=== PATIENT | female | born 1955 | race Caucasian/White ===

== ENCOUNTER 2024-02-10 13:24 | Outpatient (AMB) | payer OTHER, MEDICARE, SELFPAY ==
[2024-02-10 13:27] VITALS: BP 124/74; PULSE 67; O2SAT 96; BMI 32.8
--- NOTE | 2024-02-10 13:27 | HO.NEPHOV ---
Vital Signs 02/10/24 13:27 Height 5 ft 6 in Weight 203 lb 4 oz BMI 32.8 BP 124/74 Blood Pressure Location Lt brachial Position Sitting Pulse 67 Pulse Source Pulse Oximeter Pulse Oximetry (%) 96 Oxygen Delivery Method Room Air Intake Visit Reasons: Continuing care-HTN Special Service Representative Required: No Allergies lisinopril Allergy (Verified 02/10/24 13:30) Unknown Pzynmrb-KGQ-YzR Reductase Inhibitor Allergy (Verified 02/10/24 13:30) Unknown HPI Comments Details: 68-year-old man with a history of longstanding hypertension. She is here for annual follow-up. 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 No specific issues at this time. History of obstructive sleep apnea. She is chronic cough which is most likely related to underlying GERD. [facility] Medical History (Updated 02/09/24 @ 10:33 by Jerica Najera MA) Urinary tract infection Sleep apnea Nephrolithiasis HTN (hypertension) Hyperlipidemia GERD (gastroesophageal reflux disease) Atrial fibrillation Surgical History (Updated 02/10/24 @ 13:33 by Jerica Najera MA) S/P bunionectomy Family History (Updated 02/09/24 @ 10:36 by Jerica Najera MA) Mother Skin cancer Dementia Father Hypertension Heart disease Autoimmune disease Dementia Brother Dementia Esophageal cancer Social History (Updated 02/10/24 @ 13:33 by Jerica Najera MA) Alcohol intake: never Patient Tobacco Use Status: Never used Tobacco Physical Exam Vital Signs: Last Vital Signs Pulse 67 02/10/24 13:27 BP 124/74 02/10/24 13:27 Pulse Ox 96 02/10/24 13:27 Oxygen Delivery Method Room Air 02/10/24 13:27 BMI result Body Mass Index 32.8 Const General: comfortable; No acute distress Orientation/consciousness: patient oriented x3 Eyes General: appearance normal, both eyes and all related structures Visual Palacios: normal visual palacios by confrontation Neck Neck: Yes supple and Yes no JVD Resp Effort & Inspection: normal respiratory effort and respiratory effort not decreased Auscultation: rhonchi Cardio Palpation: no palpable S3 and no palpable S4 Heart sounds: no rubs GI Inspection: Yes normal to inspection Palpation (GI): Soft to palpation Percussion: Yes normal to percussion Auscultation: normal bowel sounds General: Yes no CVA tenderness Back/Spine/Pelvis Back: no CVA tenderness Skin General skin exam: no petechiae and no purpura Neuro General: patient oriented x3 and no focal motor deficits Extrem General: No clubbing and No edema Results Reviewed Results Reviewed: Creatinine 1.0 Nephrology Results: No Data to Display Assessment & Plan Assessment & Plan (1) HTN (hypertension): Code(s): I10 - Essential (primary) hypertension Category: Medical Plan 68-year-old man with a history of longstanding hypertension in the presence sleep apnea. Blood pressure well controlled at this time. Maintain blood pressure less than 130/80 Encouraged to stand low-sodium diet. Obstructive sleep apnea and obesity could be contributing to the hypertension. Encouraged her to continue using CPAP. Weight loss will also benefit. I have not made any changes to her medications today Orders: Orders Complete Blood Count Auto Diff 1 Year I10 - Essential (primary) hypertension Comprehensive Met. Panel 1 Year I10 - Essential (primary) hypertension Coding Level of Care Code Est Pt Level 3 (78818) Diagnoses HTN (hypertension) I10
== END 2024-02-10 13:46 | disposition home or self-care (01) ==
PROVIDERS: PCP Physician Assistant; Visit Provider Internal Medicine Hypertension Specialist
DX: I10 Essential (primary) hypertension (principal)
CPT/HCPCS: 99213

== ENCOUNTER → 2024-02-10 13:24 | Outpatient (BNVA) | payer OTHER, MEDICARE, SELFPAY | PROVIDERS: PCP Physician Assistant; Visit Provider Internal Medicine Hypertension Specialist ==

== ENCOUNTER 2025-01-25 13:22 | Outpatient (AMB) | payer OTHER, MEDICARE, SELFPAY ==
--- OUTSIDE RECORDS SUMMARY | 2025-01-22 23:59 | XMS_ITS | Continuity of Care Document ---
Author Organization [facility] ter Address [address] [place] [id number]- Care Team Providers Care Tapping Machine Operator Name Role Phone Enzo Beatty Primary Care Physician Encounter 01/21/25 - 01/22/[address] [address]- Attending Physician: Not on Staff, Attending MD Referring Physician: Not on Staff, Referring MD Encounter Type: [facility]RI Allergies, Adverse Reactions, Alerts Substance Criticality Severity Reaction Reaction Severity Status lisinopril Active statins Active Immunizations Given and Recorded Vaccine Date Status Refusal Reason influenza virus vaccine, inactivated 03/07/21 Umair rded influenza virus vaccine, inactivated 1 04/20/18 Re corded SARS-CoV-2 (COVID-19) mRNA BNT-162b2 vac 08/24/20 Recorded SARS-CoV-2 (COVID-19) mRNA BNT-162b2 vac 08/01/20 Recorded zoster vaccine, inactivated 06/19/20 Recorded pneumococcal 13-valent vaccine 03/28/20 Recorded Zoster Vaccine Live 02/03/20 Recorded pneumococcal 23-valent vaccine 03/31/17 Given tetanus/diphtheria/pertussis, acel(Tdap) 01/29/17 Recorded tetanus-diphtheria toxoids (Td) 01/13/17 Recorded 1Result Comment: [04/22/2018] done by [facility] Medications Acidophilus Probiotic Blend By Mouth, Daily, 0 Refills, Maintenance, 06/30/19 2:09:00 PM EST Start Date: 06/30/19 Status: Ordered Repeat number: 1 Budesonide add to saline rinse solution, Refills 0, Maintenance, 09/24/23 10:18:00 AM EDT Start Date: 09/24/23 Status: Ordered Repeat number: 1 clobetasol 0.05% topical cream 1 application, Topically, prn, # 15 Gm, 0 Refills, Maintenance, 06/30/19 2:09:00 PM EST, Cream Start Date: 06/30/19 Status: Ordered Quantity: 15.0 Unit: g Repeat number: 1 CoQ10 300 mg oral capsule 1 capsule = 300 mg, By Mouth, Daily, # 100 capsule, 0 Refills, Maintenance, 02/06/21 8:49:00 AM EDT,Capsule, Partial fill upon patient request if the prescription is for a schedule II opioid drug. Start Date: 02/06/21 Status: Ordered Quantity: 100.0 Unit: capsule Repeat number: 1 docusate sodium 100 mg oral tablet 1 tablet = 100 mg, By Mouth, 2 times a day, PRN for constipation, # 100 tablet, 0 Refills, Maintenance, 09/13/24 10:00:00 AM EDT, Tablet, Partial fill upon patient request if the prescription is for a schedule II opioid drug. Start Date: 09/13/24 Status: Ordered Quantity: 100.0 Unit: tablet Repeat number: 1 famotidine 20 mg oral tablet 20 mg, 1, tablet, By Mouth, Daily, Refills 0, Maintenance, 06/21/24 9:34:00 AM EST, Partial fill uponpatient request if the prescription is for a schedule II opioid drug. Start Date: 06/21/24 Status: Ordered Repeat number: 1 ferrous sulfate 325 mg oral tablet 1 tablet = 325 mg, By Mouth, Daily, # 90 tablet, 1 Refills, Maintenance, 09/23/24 10:12:00 PM EDT, Tablet, [facility]/pharmacy #[id number], Partial fill upon patient request if the prescription is for a schedule II opioid drug., 168, cm, 09/13/24 9:54:00 EDT, Height Start Date: 09/23/24 Status: Ordered Quantity: 90.0 Unit: tablet Repeat number: 2 flecainide 50 mg oral tablet 1, tablet, By Mouth, Every 12 hours, # 180 tablet, Refills 3, Maintenance, 10/28/24 10:51:00 AM EDT,Route to Pharmacy Electronically, [id number], 167, cm, 10/13/24 12:52:00 EDT, Height Start Date: 10/28/24 Stop Date: 01/26/25 Status: Ordered Quantity: 180.0 Unit: tablet Repeat number: 1 ibuprofen 200 mg oral capsule 2 capsule = 400 mg, By Mouth, Every 4 hours, PRN for fever, # 120 capsule, 0 Refills, Maintenance, 06/30/19 2:10:00 PM EST, Capsule Start Date: 06/30/19 Status: Ordered Quantity: 120.0 Unit: capsule Repeat number: 1 Metoprolol Tartrate 25 mg oral tablet 1 tablet, By Mouth, 2 times a day, # 180 tablet, 3 Refills, Maintenance, 12/26/24 11:41:00 AM EDT, [facility]/pharmacy #[id number], 167, cm, 12/19/24 13:03:00 EDT, Height Start Date: 12/26/24 Stop Date: 12/21/25 Status: Ordered Quantity: 180.0 Unit: tablet Repeat number: 4 Misc Rx Refills 0, Maintenance, vitamin C 250 mg gummie daily, 09/13/24 9:59:00 AM EDT, Supply Start Date: 09/13/24 Status: Ordered Repeat number: 1 Misc Rx Refills 0, Maintenance, D' mannose 1000 mg daily, 09/13/24 10:00:00 AM EDT, Supply Start Date: 09/13/24 Status: Ordered Repeat number: 1 Mucinex 600 mg oral tablet, extended release 1 tablet = 600 mg, By Mouth, Every 12 hours, prn, # 14 tablet, 0 Refills, Maintenance, 06/30/19 2:09:00 PM EST, ER Tablet Start Date: 06/30/19 Stop Date: 07/07/19 Status: Ordered Quantity: 14.0 Unit: tablet Repeat number: 1 Multivitamin 0 Refills, Maintenance, 12/19/24 1:07:00 PM EDT, Partial fill upon patient request if the prescription is for a schedule II opioid drug. Start Date: 12/19/24 Status: Ordered Repeat number: 1 Nexium 20 mg oral enteric coated capsule 1 capsule = 20 mg, By Mouth, Daily, 0 Refills, Maintenance, 06/06/21 2:38:00 PM EST, Partial fill upon patient request if the prescription is for a schedule II opioid drug. Start Date: 06/06/21 Status: Ordered Repeat number: 1 nystatin-triamcinolone topical 413865 u/gm-0.1% ointment 1 application, Topically, 3 times a day, 0 Refills, Maintenance, 02/06/21 8:48:00 AM EDT, Partial fill upon patient request if the prescription is for a schedule II opioid drug. Start Date: 02/06/21 Stop Date: 02/11/21 Status: Ordered Repeat number: 1 pravastatin 10 mg oral tablet 1 tablet, By Mouth, Daily, # 90 tablet, 3 Refills, Maintenance, 04/25/24 6:51:00 AM EST, [id number], 168, cm, 03/30/24 9:38:00 EDT, Height Start Date: 04/25/24 Status: Ordered Quantity: 90.0 Unit: tablet Repeat number: 1 tacrolimus 0.1% topical ointment 1 application, Topically, 2 times a day, # 30 Gm, 0 Refills, Maintenance, 07/09/20 12:12:00 PM EST, Ointment, Partial fill upon patient request if the prescription is for a schedule II opioid drug. Start Date: 07/09/20 Status: Ordered Quantity: 30.0 Unit: g Repeat number: 1 Tylenol 8 Hour 650 mg oral tablet, extended release 2 tablet = 1,300 mg, By Mouth, Every 8 hours, PRN as needed for fever, # 24 tablet, 0 Refills, Maintenance, 06/30/19 2:09:00 PM EST, ER Tablet Start Date: 06/30/19 Status: Ordered Quantity: 24.0 Unit: tablet Repeat number: 1 Vitamin D2 2000 intl units oral capsule 1 capsule = 2,000 International_Units, By Mouth, Daily, with food, # 60 capsule, 0 Refills, Maintenance, 06/30/19 2:09:00 PM EST, Capsule Start Date: 06/30/19 Status: Ordered Quantity: 60.0 Unit: capsule Repeat number: 1 Xyzal 5 mg oral tablet 1 tablet = 5 mg, By Mouth, Daily in PM, # 30 tablet, 0 Refills, Maintenance, 06/21/24 9:35:00 AM EST,Tablet, Partial fill upon patient request if the prescription is for a schedule II opioid drug. 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 Vitamin D deficiency Confirmed Active Social History Social History Type Response Smoking Status Never smoker; Tobacc o user in household: No entered on: 04/23/17 Sex Sex Representation Female (finding) Patient Care team information Care Team Personnel Name: Marifer Bang MD Position: [facility] Physician (General Medicine) Member Role: Lifetime Consulting Physician Address: [address] [place] [address] Telecom: Name: Jerry Gonzalez RN Position: [facility] ED RN W/OE and Tasks Member Role: Primary Care Nurse Name: Trisha Ruby RN Position: [facility] OB RN Member Role: Primary Care Nurse Name: Enzo Beatty Position: [facility] PCO Associate Professional Member Role: PCP Address: [address] [place] [phone]- Telecom: Care Team Related Persons Name: MARIFER BANG Insurance Providers Guarantor name: NAKUL DONELL Health Plan Information #: 1 Payer: [employer] [facility] PPO Payer Identifier: NA Member Number: [id number] Group Number: [id number] Subscriber Identifier: [id number] Relationship to Subscriber: spouse Coverage Type: Other Private Insurance Coverage Verification Date: NA Telecom: NA Address: Health Plan Information #: 2 Payer: MEDICARE B Payer Identifier: NA Member Number: [id number] Group Number: [id number] Subscriber Identifier: [id number] Relationship to Subscriber: self Coverage Type: NA Coverage Verification Date: NA Telecom: NA Address: NA
[2025-01-25 13:24] VITALS: BP 154/82; PULSE 65; O2SAT 96; BMI 32.4
--- NOTE | 2025-01-25 13:24 | HO.NEPHOV ---
Vital Signs 01/25/25 13:24 01/25/25 13:38 Height 5 ft 6 in Weight 201 lb BMI 32.4 BP 154/82 H 140/70 H Blood Pressure Location Lt brachial Lt brachial Position Sitting Sitting Pulse 65 Pulse Source Pulse Oximeter Pulse Oximetry (%) 96 Oxygen Delivery Method Room Air Intake Visit Reasons: 1 yr fu w/ labs-Conf Supervisor Customer Complaint Service Required: No Accompanied by: Self / Same As Patient Allergies lisinopril Allergy (Verified 01/25/25 13:26) Unknown Ycswcgc-IFG-ApU Reductase Inhibitor Allergy (Verified 01/25/25 13:26) Unknown Medication List - Last Reconciled 01/25/25 by Yves Rosenberg MD ascorbic acid (vitamin C) 250 mg PO DAILY budesonide mg inhalation cholecalciferol (vitamin D3) 50 mcg PO DAILY clobetasol 0.05% 1 appl topical BID clotrimazole-betamethasone 1-0.05 % appl topical ferrous sulfate 325 mg PO DAILY flecainide 50 mg PO BID metoprolol tartrate 25 mg PO BID omeprazole 40 mg PO DAILY pravastatin 10 mg PO BEDTIME HPI Comments Details: 69-year-old woman with a history of longstanding hypertension. She is here for annual follow-up. 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 No specific issues at this time. History of obstructive sleep apnea. She is chronic cough which is most likely related to underlying GERD. 01/25/25 The patient is a 69-year-old female presenting with management of HTN She was found to be iron deficient and has been taking iron supplements, which have improved her hemoglobin levels to 13.9 and 13.7 g/dL. Additionally, she was diagnosed with vitamin B12 deficiency and is currently taking a B vitamin combination. The patient also reports a history of cardiac hemangioma, referred to as cardomas, which has been stable with no changes on recent MRI. She has been experiencing a chronic cough and has undergone multiple pulmonary evaluations. Despite four breathing tests showing no asthma, the cough persists, and it is suspected to be due to a combination of GERD and an overactive cough reflex. There is also evidence of sarcoidosis on a CT scan, which has not been treated as it is considered burnt out. 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 She experiences hypoxemia at night, for which she is considering the use of an oxygen concentrator. Her blood pressure was initially high upon arrival but later stabilized at 140/70 mmHg. She monitors her blood pressure at home occasionally and reports it is usually better at home. [facility] Medical History (Updated 01/10/25 @ 09:46 by Yves Rosenberg MD) Urinary tract infection Sleep apnea Nephrolithiasis HTN (hypertension) Hyperlipidemia GERD (gastroesophageal reflux disease) Atrial fibrillation Surgical History S/P bunionectomy Family History Mother Skin cancer Dementia Father Hypertension Heart disease Autoimmune disease Dementia Brother Dementia Esophageal cancer Social History Alcohol intake: never Patient Tobacco Use Status: Never used Tobacco Physical Exam Vital Signs: BMI result Body Mass Index 32.4 Const General: comfortable; No acute distress Orientation/consciousness: patient oriented x3 Eyes General: appearance normal, both eyes and all related structures Visual Ball: normal visual ball by confrontation Neck Neck: Yes supple and Yes no JVD Resp Effort & Inspection: normal respiratory effort and respiratory effort not decreased Cardio Palpation: no palpable S3 and no palpable S4 Heart sounds: no rubs GI Inspection: Yes normal to inspection Palpation (GI): Soft to palpation Percussion: Yes normal to percussion Auscultation: normal bowel sounds General: Yes no CVA tenderness Back/Spine/Pelvis Back: no CVA tenderness Skin General skin exam: no petechiae and no purpura Neuro General: patient oriented x3 and no focal motor deficits Extrem General: No clubbing and No edema Assessment & Plan Assessment & Plan (1) HTN (hypertension): Code(s): I10 - Essential (primary) hypertension Category: Medical Plan 69-year-old woman with a history of longstanding hypertension in the presence sleep apnea. Blood pressure is acceptable Maintain blood pressure less than 130/80 Encouraged to stany on low-sodium diet. Obstructive sleep apnea and obesity could be contributing to the hypertension. Encouraged her to continue using CPAP. Weight loss will also benefit. I have not made any changes to her medications today Orders: Orders Basic Metabolic Panel 1 Year I10 - Essential (primary) hypertension Coding Level of Care Code Est Pt Level 4 (81706) Diagnoses HTN (hypertension) I10
[2025-01-25 13:38] VITALS: BP 140/70
--- OUTSIDE RECORDS SUMMARY | 2025-01-25 13:49 | XMS_ITS | Clinical Summary ---
Author Organization [facility] Address [address] [place] [address] Care Team Providers Care Web Site Manager Name Role Phone No, Pcp GUILLOTINE TRIMMER Primary Care Provider Unavailabl e Allergies No known active allergies Medications ondansetron (ZOFRAN) 4 MG tablet Take 2 tablets (8 mg total) by mouth 2 (two) times a day as needed for nausea for up to 4 doses. 8 tablet 10/23/2016 Active Social History Tobacco Use Types Packs/Day Years Used Date Smoking Tobacco: Never Comments No Sex and Gender Information Value Date Recorded Sex Assigned at Not on file Legal Sex Female 9:20 AM EDT Gender Identity Not on file Sexual Orientation Not on file Last Filed Vital Signs Vital Sign Reading Time Taken Comments Blood Pressure 138/84 10/23/2016 10:03 AM EDT Pulse 90 10/23/2016 10:01 AM EDT Temperature 38.1 C (100.6 F) 10/23/2016 10:01 AM EDT Respiratory Rate 20 10/23/2016 10:01 AM EDT Oxygen Saturation 98% 10/23/2016 10:01 AM EDT Inhaled Oxygen Concentration - - Weight 99.8 kg (220 lb) 10/23/2016 10:01 AM EDT Height 170.2 cm (5' 7 ) 10/23/2016 10:01 AM EDT Body Mass Index 34.46 10/23/2016 10:01 AM EDT Plan of Treatment Health Maintenance Due Date Last Done Comments Colorectal Cancer: COLONOSCO PY Screening every 10 yrs (or Modifier) 1953 Depression: Screening Annual ly using PHQ-2/9 in Adults 18 yrs or above (or HM Modifier)([facility]) 1971 Hepatitis C Virus Infection in Adolescents and Adults: Screening (or Modifier) ([facility]) 1971 TIESHA Screening: Once using ST OP-BANG Questionnaire for Adults with Conditions or high BMI([facility]) 1971 SDOH Screening Reminder: Melony chase for all adults ([facility]) 1971 Tobacco Smoking Cessation: i n Adults excluding Women: Behavioral and Pharmacotherapy Interventions ([facility]) 1971 DTaP/Tdap/Td Vaccines ([facility]) (1 - Tdap) 1972 Colorectal Cancer Screening 45 -75 Yrs (or HM Modifier) 1998 Colorectal Cancer: FLEXIBLE SIGMOIDOSCOPY Screening every 5 yrs 1998 Colorectal Cancer: Fecal Imm unochemical Test (FIT) Annually [facility] 1998 Colorectal Cancer: High-sens itivity gFOBT Screening Annually [facility] 1998 Colorectal Cancer: Stool Col oguard Screening every 3 yrs 1998 Colorectal Cancer:CT Colonog everett Screening every 5 yrs 1998 Breast Cancer: Screening Melony chase age 50-74 yrs (or HM Modifier)([facility]) 2003 Pneumococcal Vaccination Scr eening: Patients 50+ yrs of age ([facility]) (2 of 2 - PCV) 03/31/2018 03/31/2017 Osteoporosis Screening to Pr event Fractures: Women aged 65 years+ ([facility]) 2018 Zoster/Shingles Vaccine Seri es Screening: Adults aged 18+ yrs (or HM Modifiers)([facility]) (2 of 2) 08/14/2020 06/19/2020 COVID-19 Vaccine Screening: Initial Series and Booster Status ([facility]) (2023- season) 2024 08/24/2020, 08/01/2020 Flu Vaccination: Ages 65+: Y early High Dose Recommended (or Modifier)([facility]) 01/13/2025 RSV Vaccines (1 - 1-dose 75+ series) 2028 Medical Devices Not on file Insurance [facility] Care Teams Web Site Manager Relationship Specialty Start Date End Date No, Pcp, GUILLOTINE TRIMMER N/A Do not use PCP - General 10/23/16
--- OUTSIDE RECORDS SUMMARY | 2025-01-25 13:49 | XMS_ITS | Clinical Summary ---
Author Organization [facility] Address [address] [place] [address] Care Team Providers Care Senior Web Architect Name Role Phone Pcp, No Primary Care Provider Unavailabl e Allergies Active Allergy Reactions Criticality Noted Date Comments Grass Pollen Other 10/24/2021 House Dust Mite Other 10/24/2021 Lisinopril Cough,Other,Unknown High 06/29/2017 Hmhnsly-Ccz-Nzj Reductase Inhibitors Other 11/26/2020 Medications albuterol (Proventil;Vent carlos;Proair) 90 mcg/actuation inhaler INHALE 2 PUFFS UP TO 4 TIMES DAILY. USE WITH SPACER. 11/15/2022 Active budesonide (Pulmicort) 0.5 mg/2 mL nebulizer solution USE ONE RESPULE IN 240ML NASAL SALINE TWICE A DAY DIRECTED 02/22/2023 Active flecainide (Tambocor) 50 mg tablet 1 TABLET BY MOUTH EVERY 12 HOURS,X90 DAYS 01/10/2023 Active metoprolol tartrate (Lopressor) 25 mg tablet Take 1 tablet (25 mg total) by mouth 2 (two) times a day. 03/06/2023 Active pravastatin (PRAVACHOL) 20 mg tablet Take 1 tablet (20 mg total) by mouth 1 (one) time each day. 12/06/2022 Active ergocalciferol (Vitamin D2) 1,250 mcg (50,000 unit) capsule Take 1 capsule (50,000 Units total) by mouth 1 (one) time per week. Active Active Problems No known active problems Social History Tobacco Use Types Packs/Day Years Used Date Smoking Tobacco: Never Tobacco Cessation:Counseling Given: Not Answered Comments Unknown Sex and Gender Information Value Date Recorded Sex Assigned at Not on file Legal Sex Female 10:52 AM EDT Gender Identity Not on file Sexual Orientation Not on file Last Filed Vital Signs Vital Sign Reading Time Taken Comments Blood Pressure 147/73 03/18/2023 11:16 AM EDT Pulse 78 03/18/2023 11:16 AM EDT Temperature 37.2 C (98.9 F) 03/18/2023 11:16 AM EDT Respiratory Rate - - Oxygen Saturation 96% 03/18/2023 11:16 AM EDT Inhaled Oxygen Concentration - - Weight 93 kg (205 lb) 03/18/2023 11:16 AM EDT Height 167.6 cm (5' 6 ) 03/18/2023 11:16 AM EDT Body Mass Index 33.09 03/18/2023 11:16 AM EDT Plan of Treatment Health Maintenance Due Date Last Done Comments CT Colonography 1953 Colonoscopy 1953 Colorectal Cancer Screening 1953 FIT-DNA 1953 FIT 1953 FOBT 1953 Hepatitis C Screening 1953 Mammogram 1953 Sigmoidoscopy 1953 Medicare Annual Wellness Visit 1971 Osteoporosis Screening 2003 Fall Risk Screening 2018 Zoster Vaccines (3 of 3) 08/14/2020 021, 02/03/2020 COVID-19 Vaccine (3 - 2023-2 5 season) 2024 08/24/2020, 08/01/2020 Influenza Vaccine (#1) 2025 , 04/20/2018 Pneumococcal Vaccine: 50+ Years (3 of 3 - PCV20 or PCV21) 03/28/2025 03/28/2020, 03/31/2017 Tdap and Td Vaccines Adult 01/13/2027 01/13/2017 RSV 60+ (1 - 1-dose 75+ series) 2028 HIB Vaccines Aged Out No longer eligi ble based on patient's age to complete this topic HPV Vaccines (No Doses Required) Completed Hepatitis A Vaccines Aged Out No long er eligible based on patient's age to complete this topic IPV Vaccines Aged Out No longer eligi ble based on patient's age to complete this topic Lipid Panel Discontinued Meningococcal Vaccine Aged Out No aleida vonnie eligible based on patient's age to complete this topic RSV <20 Months Aged Out No longer zachariah gible based on patient's age to complete this topic Insurance MEDICARE [employer] GENERIC Member Subscriber Plan / Payer (Ef fective 2021-Present) Name:Bessie Bang Relation to Subscriber:Self Name:Bessie Bang Payer ID:[id number] Type:Not on file Address: [place] [id number] Care Teams Senior Web Architect Relationship Specialty Start Date End Date Pcp, No No PCP On File TRACY Chen [id number] PCP - General 03/18/23
--- OUTSIDE RECORDS SUMMARY | 2025-01-25 13:49 | XMS_ITS | Encounter Summary ---
Author Organization [facility] Address [address] [place] [address] Care Team Providers Care Plaster Pattern Caster Name Role Phone Enzo Manriquez Primary Care Provider [phone] Reason for Visit * Reason Onset Date Comments Message to Provider - Dr Douglass 08/13/[address] Scan order for Sinuses sent over to Dept Encounter Details Date Type Department Care Team (Late st Contact Info) Description 08/13/2021 Telephone [facility] [address] [place] [id number] Telephone Intake, Staff Message to Provider - Dr Douglass (Pt needs CT Scan order for Sinuses sent over to Dept) Social History Tobacco Use Types Packs/Day Years Used Date Smoking Tobacco: Never Smokeless Tobacco: Never Alcohol Use Standard Drinks/Week Comments Defer 0 (1 standard drink = 0.6 oz pur e alcohol) Comments Unknown Sex and Gender Information Value Date Recorded Sex Assigned at Female 07/08/2021 5:21 PM EST Legal Sex Female 11:18 AM EST Gender Identity Female 07/08/2021 5:21 PM EST Sexual Orientation Straight 07/10/2021 11 :46 AM EST documented as of this encounter Miscellaneous Notes * Telephone Encounter - Diannazuri Hunter - 08/13/2021 10:53 AM EST Patiient calling to get a message to Dr Douglass. She received a prior auth from her Insurance Co for a CT Scan of her sinuses. She is asking that this order be sent over to the CT Dept so she can schedule. Any questions, she can be reached a [phone] documented in this encounter Plan of Treatment Not on file documented as of this encounter Visit Diagnoses Not on filedocumented in this encounter Care Teams Plaster Pattern Caster Relationship Specialty Start Date End Date Enzo Manriquez PA [address] [place] [place] [address] PCP - General 05/14/21 documented as of this encounter
--- OUTSIDE RECORDS SUMMARY | 2025-01-25 13:49 | XMS_ITS | Clinical Summary ---
Author Organization [facility] Address [address] [place] [id number] Care Team Providers Care Blending Line Attendant Name Role Phone Enzo Manriquez PA-C Primary Care Provider Immunizations Name Administration Dates Next Due Covid-19 (Pfizer) Dilution Required 08/24/2020 Social History Tobacco Use Types Packs/Day Years Used Date Smoking Tobacco: Never Assessed Sex and Gender Information Value Date Recorded Sex Assigned at Female 08/24/2020 2:41 PM EST Gender Identity Not on file Sexual Orientation Not on file Plan of Treatment Health Maintenance Due Date Last Done Comments Hepatitis C Screening 1955 Depression Screening 1965 Preventative Health Evaluation 1971 DTap / Tdap / Td (1 - Tdap) 1972 Colon Cancer Screening (Colonoscopy) 1998 Breast Cancer Screening (Mammogram) 2003 Shingrix-Zoster Vaccine (1 of 2) 2003 Fall Risk Assessment 2018 Osteoporosis Screening (DEXA Scan) 2018 Pneumococcal Vaccine (1 of 1 - PCV) 2018 COVID-19 Vaccine (2 - 2023-2 5 season) 2024 08/24/2020 Influenza Vaccine (#1) 2025 RSV Adult > 60+ Yrs or Pregn ant (1 - 1-dose 75+ series) 2028 Hepatitis B Vaccines Aged Out No long er eligible based on patient's age to complete this topic RSV Ped < 20 months Aged Out No longe r eligible based on patient's age to complete this topic Insurance Payer Benefit Plan / Group Subscriber ID Effective Dates Phone Address [facility] [id number] [address] [place] [address] HMO Care Teams Blending Line Attendant Relationship Specialty Start Date End Date Enzo Manriquez PA-C [address] [place] [address] PCP - General Physician Assistant Boiler Operator 08/24/20
--- OUTSIDE RECORDS SUMMARY | 2025-01-25 13:49 | XMS_ITS | Clinical Summary ---
Author Organization [facility] Address [address] [place] [address] Phone Care Team Providers Care Autocad Detailer Name Role Phone Enzo Manriquez PA-C Primary Care Provider Allergies Active Allergy Reactions Criticality Noted Date Comments Lisinopril Other (see comments) 11/26/2020 Molds & Smuts 10/24/2021 Statins Other (see comments) 11/26/2020 Medications Probiotic Product (PROBIOTIC-10 PO) Take 1 capsule by mouth 1 (one) time each day Active acetaminophen (TYLENOL 8 HOUR) 650 MG 8 hr tablet Take 1 tablet by mouth if needed Active clobetasol (TEMOVATE) 0.05 % cream Comments: Patient Notes: APPLY A SMALL AMOUNT TOPICALLY TO AFFECTED AREA TWICE A DAY Duration: 15 Active flecainide (TAMBOCOR) 50 MG tablet Take 1 tablet by mouth 2 (two) times a day Active ibuprofen (ADVIL,MOTRIN) 200 MG tablet Comments: Patient Notes: Take 200mg - 600mg prn Active metoprolol tartrate (LOPRESSOR) 25 MG tablet Comments: Patient Notes: TAKE 1 TABLET BY MOUTH TWICE A DAY Duration: 30 Active pravastatin (PRAVACHOL) 10 MG tablet Take 10 mg by mouth 1 (one) time each day Active albuterol HFA (PROVENTIL HFA;VENTOLIN HFA) 108 (90 Base) MCG/ACT inhaler Inhale 2 puffs every 6 (six) hours if needed for wheezing Active nystatin (MYCOSTATIN) ointment Apply topically 2 (two) times a day Active tacrolimus (PROTOPIC) 0.1 % ointment Apply topically 2 (two) times a day Active budesonide (PULMICORT) 0.5 MG/2ML nebulizer solution Take 0.5 mg by nebulization 1 (one) time each day 2 Active Coenzyme Q10 300 MG capsule Take 300 mg by mouth 1 (one) time each day 1 Active Cholecalciferol 50 MCG (2000 UT) capsule Take 2,000 Units by mouth in the morning. 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 01/20/2023 Headache disorder 06/02/2022 01/20/2023 Polyp of nasal cavity 03/03/2022 01/20/2023 Chronic sinusitis 10/24/2021 01/20/2023 Radiology result abnormal 09/09/2021 Overview (03/15/2024): Replacing diagnoses that were inactivated after the 03/15/24 Regulatory Import Sarcoidosis 08/20/2021 01/20/2023 Acute maxillary sinusitis 07/08/20212022 Atrial fibrillation 07/08/2021 01/20/2023 Chronic cough 07/08/2021 01/20/2023 Chronic rhinosinusitis 07/08/2021 Obstructive sleep apnea syndrome 07/08/2021 01/20/2023 Posterior rhinorrhea 07/08/2021 01/20/2023 Basal cell carcinoma of skin 11/26/2020 Gastroesophageal reflux disease 11/26/2020 Eczema 11/26/2020 Hypertensive disorder 11/26/2020 Hyperlipidemia 11/26/2020 Migraine 11/26/2020 Renal stone 11/26/2020 Sinusitis 01/13/2017 01/20/2023 Immunizations Immunization Administration Dates Next Due Pfizer SARS-COV-2 08/24/2020,08/24/2020,08/01/19 Pneumococcal Conjugate 13-Valent 03/28/2020 Pneumococcal Polysaccharide 03/31/2017 Shingrix 06/19/2020 Td, Unspecified 01/13/2017 Zoster 02/03/2020 Family History Medical History Relation Comments Cancer Brother 1 Dementia Brother 1 Dementia Brother 2 Autoimmune disease Father Dementia Father Heart disease Father MS Hypertension Father Cancer Mother skin Dementia Mother Heart disease Sibling 1 Cancer Sibling 2 esophagral CA Relation Status Comments Brother 1 Brother 2 Father Mother Sibling 1 Sibling 2 Social History Tobacco Use Types Packs/Day Years Used Date Smoking Tobacco: Never Smokeless Tobacco: Never Alcohol Use Standard Drinks/Week Comments Yes 0 (1 standard drink = 0.6 oz pur e alcohol) Very seldom Comments Unknown Sex and Gender Information Value Date Recorded Sex Assigned at Female 12/10/2021 12:24 PM EDT Legal Sex Female 4:48 PM EST Gender Identity Female 12/10/2021 12:24 PM EDT Sexual Orientation Straight 12/10/2021 12 :24 PM EDT Last Filed Vital Signs Vital Sign Reading Time Taken Comments Blood Pressure 128/64 01/20/2023 3:27 PM EDT Pulse 78 01/20/2023 3:27 PM EDT Temperature - - Respiratory Rate - - Oxygen Saturation 98% 12/10/2021 3:10 PM EDT Inhaled Oxygen Concentration - - Weight 92.1 kg (203 lb) 01/20/2023 3:27 PM EDT Height 168.9 cm (5' 6.5 ) 06/21/2019 12:00 PM ES T Body Mass Index 32.27 06/21/2019 12:00 PM EST Plan of Treatment Health Maintenance Due Date Last Done Comments Breast Cancer Screening 1955 Colorectal Cancer Screening: Annual FOBT 2002 Colorectal Cancer Screening: Colonoscopy 2002 Colorectal Cancer Screening: Sigmoidoscopy 2002 Pneumococcal Vaccine: 50+ Years (3 of 3 - PCV20 or PCV21) 03/31/2022 03/28/2020, 03/31/2017 Influenza Vaccine (#1) 2025 Pneumococcal Vaccine: Peds ( 0 to 5 Years) and At-Risk Patients (6 to 49 Years) Discontinued 03/28/2020, 03/31/2017 Hepatitis B Vaccine Aged Out No longe r eligible based on patient's age to complete this topic Insurance Subscriber Plan / Payer (Ef fective 2019-Present) Name:Bessie Bang Relation to Subscriber:Self Name:Bessie Bang Payer ID:Not on file Type:Not on file Address: [address] [id number] Medicare Medicare Care Teams Autocad Detailer Relationship Specialty Start Date End Date Enzo Manriquez PA-C [address] [place], [place] [id number] PCP - General Physician Education Technician 12/10/21
== END 2025-01-25 13:41 | disposition home or self-care (01) ==
LOC: HO.HKAE 13:23
PROVIDERS: PCP Physician Assistant; Visit Provider Internal Medicine Hypertension Specialist
DX: I10 Essential (primary) hypertension (principal)
CPT/HCPCS: 99214